=== PATIENT | male | born 1945 | race Caucasian/White ===

== ENCOUNTER 2017-10-16 09:57 | Emergency (ER) | payer MEDICARE ==
[~2017-10-16] VITALS: Ht 177.8 cm; Wt 118.9 kg
[~2017-10-16 09:57] MED LIST: CALA240T PO; CELE200 PO; IMOD2TAB PO; LORTA5 PO; MAXZ25 PO; POTA20IN3 PO; VERA1TAB9 OR
[2017-10-16 10:04] VITALS: BP 146/65; PULSE 104; RESP 16; TEMP 99.7; O2SAT 95
[2017-10-16] MEDS ORDERED: TRIA37.5 PO (10:25)
[2017-10-16] MEDS ORDERED: VERA1TAB17 PO (10:25)
[2017-10-16] MEDS ORDERED: AZIT250T3 PO (11:00)
[2017-10-16] MEDS ORDERED: BENZ100 PO (11:00)
--- NOTE | 2017-10-16 11:00 | PD ---
HPI Chief Complaint: Cold / Flu Symptoms Time Seen by Provider: 10:07 Travel History International Travel<30 days: No Contact w/Intl Traveler<30days: No Traveled to known affect area: No History of Present Illness HPI This is a 72-year-old male here for evaluation of a productive cough 2 days. He is reporting colored phlegm since This morning. He denies fever or chills. No body aching. Symptoms severity mild. No aggravating or alleviating factors. PFSH Past Medical History Arthritis: Yes Cancer: No Cardiovascular Problems: No High Cholesterol: Yes Diabetes: No Diminished Hearing: No Endocrine: No Genitourinary: No Hepatitis: No Hiatal Hernia: No Hypertension: Yes Immune Disorder: No Musculoskeletal: Yes (ARTHRITIS, CHRONIC BACK PAIN) Neurologic: No Psychiatric: No Thyroid Disease: No Influenza Vaccination: Yes Past Surgical History Abdominal Surgery: No AICD: No Cardiac Surgery: No Ear Surgery: No Endocrine Surgery: No Eye Surgery: No Genitourinary Surgery: No Gynecologic Surgery: No Joint Replacement: Yes (RIGHT HIP) Neurologic Surgery: No Oral Surgery: Yes (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) Pacemaker: No Thoracic Surgery: No Other Surgery: Yes (RIGHT HIP INJECTION) Social History Alcohol Use: No Tobacco Use: No (QUIT 1988) Substance Use: No Allergies-Medications (Allergen,Severity, Reaction): Coded Allergies: No Known Allergies (Unverified Adverse Reaction, Unknown, 10/16/17) Reported Meds & Prescriptions Reported Meds & Active Scripts Active Reported Triamterene-Hydrochlorothiazide 37.5-25 Mg Tab 1 Tab PO DAILY Verapamil ER 24 HR (Verapamil HCl) 240 Mg Tab 240 Mg PO HS Review of Systems Except as stated in HPI: all other systems reviewed are Neg General / Constitutional: No: Fever Eyes: No: Visual changes HENT: Positive: Sore Throat, Congestion Cardiovascular: No: Chest Pain or Discomfort Respiratory: Positive: Cough Gastrointestinal: No: Abdominal Pain Genitourinary: No: Dysuria Physical Exam Narrative GENERAL: Alert and well-appearing 72-year-old male SKIN: Warm and dry. No rash HEAD: Normocephalic. EYES: No injection or drainage. Ear/nose/throat: No TM erythema. Clear nasal discharge. Mild pharyngeal erythema. No tonsillar hypertrophy or exudate. Uvula is midline. Nares patent. NECK: Supple. No meningismus. CARDIOVASCULAR: Regular rate and rhythm RESPIRATORY: Breath sounds equal bilaterally. No accessory muscle use. GASTROINTESTINAL: Abdomen soft, non-tender, nondistended. MUSCULOSKELETAL: No cyanosis, or edema. BACK: No CVA tenderness. Data Data Last Documented VS Vital Signs Date Time Temp Pulse Resp B/P (MAP) Pulse Ox O2 Delivery O2 Flow Rate FiO2 10/16/17 10:04 99.7 104 16 146/65 (92) 95 Orders Orders Influenzae A/B Antigen (10/16/17 10:06) MDM Medical Decision Making Medical Screen Exam Complete: Yes Emergency Medical Condition: Yes Differential Diagnosis Influenza, bronchitis, pneumonia Narrative Course 72-year-old male here with reported productive cough 2 days. He is well- appearing. Vital signs are stable. Influenza screening is negative. He'll be treated for bronchitis. Diagnosis Primary Impression: Bronchitis Referrals: Primary Care Physician Additional Instructions: Antibiotics as directed. Migdalia pearls as needed for cough. Stay well hydrated. Rest. Scripts Benzonatate (Tessalon Perles) 100 Mg Cap 200 MG PO TID Y for COUGH, #14 CAP 0 Refills Prov: Eliz Whitehead 10/16/17 Azithromycin (Azithromycin) 250 Mg Tab 250 MG PO DIRECTED for Infection, #6 TAB 0 Refills Take 2 tabs (500 mg) on day 1 then 1 tab daily x 4 days. Prov: Eliz Whitehead 10/16/17 Disposition: 01 DISCHARGE HOME Condition: Stable Eliz Whitehead Oct 16, 2017 11:00
== END 2017-10-16 11:07 | disposition home or self-care (01) ==
LOC: PHEFT 09:57
DX: J40 Bronchitis, not specified as acute or chronic (principal); M19.90 Unspecified osteoarthritis, unspecified site; E78.00 Pure hypercholesterolemia, unspecified; I10 Essential (primary) hypertension; Z79.899 Other long term (current) drug therapy
CPT/HCPCS: 87804; 99283